=== PATIENT | female | born 2000 | race Caucasian/White ===

== ENCOUNTER 2019-11-24 14:47 | Outpatient (CLI) | payer BC ==
--- NOTE | 2019-11-24 15:12 | RAD ---
RADIOGRAPH ABDOMEN 2 VIEWS: DATE: 11/24/2019. HISTORY: A 19-year-old female with left lower quadrant abdominal pain. FINDINGS: No evidence of free air. Normal bowel gas pattern. No evidence of organomegaly. IMPRESSION: Negative. POS: [facility]
== END 2019-11-24 14:48 | disposition home or self-care (01) ==
LOC: RAD-FRANK 14:47
PROVIDERS: ATTEND Nurse Practitioner Family
DX: R10.32 Left lower quadrant pain (principal)
CPT/HCPCS: 74019